=== PATIENT | male | born 1975 | race Caucasian/White ===

== ENCOUNTER 2016-09-12 13:34 | Inpatient (IN) | payer MEDICAID, OTHER ==
[~2016-09-12] VITALS: Ht 193 cm; Wt 134.5 kg
[2016-09-12 14:28] LABS: Basophils # (auto) 0 uL; Basophils % (auto) 0.5 % (0.0-2.0); DEFINITIVE VIEW TRANSMISSION; Eosinophils # (auto) 0.2 uL; Mean Platelet Volume 8.2 fL (7.4-10.4); Monocytes # (auto) 0.6 uL
[2016-09-12 14:32] LABS: Eosinophils % (auto) 2.9 % (0.0-7.0); Hematocrit 42.2 % (41.0-53.0); Lymphocytes # (auto) 1.3 uL; Lymphocytes % (auto) 17.7 % (10.0-50.0); Mean Corpuscular Hemoglobin 24.6 pg (28.0-32.0); Mean Corpuscular Hgb Conc. 30.7 g/dL (32.0-36.0); Monocytes % (auto) 7.8 % (0.0-12.0); Neutrophils # (auto) 5.3 uL; Neutrophils % (auto) 71.1 % (37.0-80.0); Platelet Count (auto) 332 10^3/uL (140-450); Red Cell Distribution Width 21.6 % (11.6-16.0); White Blood Cell 7.5 10^3/uL (4.4-10.8)
[2016-09-12 14:51] LABS: Albumin 2.5 g/dL (3.4-5.0); BUN/Creatinine Ratio 15.9; Calcium 8.1 mg/dL (8.5-10.1); Potassium 3.6 mmol/L (3.5-5.1); Total Protein 7.1 g/dL (6.4-8.2)
[2016-09-12 14:56] LABS: B-Type Natriuretic Peptide 1336.74 pg/mL (0-100); Temperature: 22.3 C (20.0-25.0)
[2016-09-12] MEDS ORDERED: VANCOMYCIN 1GM/250ML D5W 250 ML IV ONE (17:00)
[2016-09-12] MEDS ORDERED: FUROSEMIDE 20 MG/2 ML VIAL IV ONE (17:00)
[2016-09-12] MEDS ORDERED: PIPERACILLIN-TAZOB 3.375GM 100 ML IV ONE (17:00)
[2016-09-12] MEDS ORDERED: VANCOMYCIN PER PHARMACY 0 MG IV SCH (20:00)
[2016-09-12] MEDS ORDERED: DEXTROSE (50%) 50ML SYRG IV PRN (20:15)
[2016-09-12] MEDS ORDERED: FUROSEMIDE 40 MG/4 ML VIAL IV ONE (21:45)
[2016-09-12] MEDS: ACCU-CHEK COMFORT CURVE STRIP VI SCH (22:00)
[2016-09-12] MEDS: InsuLIN REG 1unit/0.01ml Soln (100units/ml) SC SCH (22:00)
[2016-09-12 22:30] VITALS: BP 105/77
[2016-09-12] MEDS: ENOXAPARIN SOD 40 MG/0.4 ML SYRINGE SC SCH (22:42)
[2016-09-12] MEDS: VANCOMYCIN 1,250 MG in D5W 5% 250 ML IV SCH (23:57)
[2016-09-13 04:43] VITALS: BP 99/46
[2016-09-13 06:49] LABS: Basophils # (auto) 0 uL; Basophils % (auto) 0.4 % (0.0-2.0); DEFINITIVE VIEW TRANSMISSION; Eosinophils # (auto) 0.1 uL; Hematocrit 37.2 % (41.0-53.0); Hemoglobin 11.5 g/dL (13.5-17.5); Lymphocytes # (auto) 1.3 uL; Lymphocytes % (auto) 17.2 % (10.0-50.0); Mean Corpuscular Hemoglobin 24.6 pg (28.0-32.0); Mean Corpuscular Hgb Conc. 30.9 g/dL (32.0-36.0); Mean Corpuscular Volume 79.4 fL (80.0-100.0); Mean Platelet Volume 8.5 fL (7.4-10.4); Monocytes # (auto) 0.7 uL; Monocytes % (auto) 9.2 % (0.0-12.0); Neutrophils # (auto) 5.3 uL; Neutrophils % (auto) 71.2 % (37.0-80.0); Platelet Count (auto) 297 10^3/uL (140-450); Red Cell Distribution Width 21.3 % (11.6-16.0); White Blood Cell 7.4 10^3/uL (4.4-10.8)
[2016-09-13] MEDS: ACCU-CHEK COMFORT CURVE STRIP VI SCH ×4 (06:54→22:07)
[2016-09-13] MEDS: InsuLIN REG 1unit/0.01ml Soln (100units/ml) SC SCH ×4 (06:54→22:00)
[2016-09-13 07:18] LABS: BUN/Creatinine Ratio 15.8; Calcium 7.3 mg/dL (8.5-10.1)
[2016-09-13 07:31] LABS: Potassium 2.9 mmol/L (3.5-5.1)
[2016-09-13 08:00] VITALS: BP 108/78
[2016-09-13] MEDS: VANCOMYCIN 1,250 MG in D5W 5% 250 ML IV SCH ×3 (08:00→23:46)
[2016-09-13 09:00] VITALS: BP 108/75
[2016-09-13] MEDS ORDERED: POTASSIUM CHL 20 Meq TABLET PO ONE (11:30)
[2016-09-13 13:00] VITALS: BP 99/70
[2016-09-13] MEDS: FUROSEMIDE 20 MG TAB PO SCH (13:17)
[2016-09-13] MEDS: PANTOPRAZOLE 40 MG TAB PO SCH (13:17)
[2016-09-13 17:02] VITALS: BP 121/71
[2016-09-13] MEDS: ENOXAPARIN SOD 40 MG/0.4 ML SYRINGE SC SCH (17:32)
[2016-09-13 21:51] VITALS: BP 121/86
[2016-09-14 05:41] VITALS: BP 107/70
[2016-09-14 05:52] LABS: Basophils # (auto) 0 uL; Basophils % (auto) 0.5 % (0.0-2.0); DEFINITIVE VIEW TRANSMISSION; Eosinophils # (auto) 0.2 uL; Eosinophils % (auto) 2.5 % (0.0-7.0); Hematocrit 38.3 % (41.0-53.0); Hemoglobin 11.9 g/dL (13.5-17.5); Lymphocytes # (auto) 1.7 uL; Lymphocytes % (auto) 19.4 % (10.0-50.0); Mean Corpuscular Hemoglobin 24.9 pg (28.0-32.0); Mean Corpuscular Volume 80.5 fL (80.0-100.0); Mean Platelet Volume 8.5 fL (7.4-10.4); Monocytes # (auto) 0.8 uL; Monocytes % (auto) 8.9 % (0.0-12.0); Neutrophils # (auto) 6.1 uL; Neutrophils % (auto) 68.7 % (37.0-80.0); Platelet Count (auto) 284 10^3/uL (140-450); White Blood Cell 8.9 10^3/uL (4.4-10.8)
[2016-09-14 05:57] LABS: Red Cell Distribution Width 21.5 % (11.6-16.0)
[2016-09-14] MEDS: ACCU-CHEK COMFORT CURVE STRIP VI SCH ×4 (06:02→22:15)
[2016-09-14] MEDS: InsuLIN REG 1unit/0.01ml Soln (100units/ml) SC SCH ×4 (06:02→22:00)
[2016-09-14 06:19] LABS: BUN/Creatinine Ratio 15.9; Calcium 7.5 mg/dL (8.5-10.1); Potassium 3.3 mmol/L (3.5-5.1)
[2016-09-14 08:00] VITALS: BP 115/75
[2016-09-14] MEDS: VANCOMYCIN 1,250 MG in D5W 5% 250 ML IV SCH ×3 (08:22→23:46)
[2016-09-14] MEDS: FUROSEMIDE 20 MG TAB PO SCH (10:17)
[2016-09-14] MEDS: PANTOPRAZOLE 40 MG TAB PO SCH (10:17)
[2016-09-14 11:27] LABS: Anisocytosis Slight; Hypochromia Slight; Ovalocytes FEW; Platelet Estimate Adequate
[2016-09-14 12:00] VITALS: BP 113/86
[2016-09-14 17:00] VITALS: BP 105/75
[2016-09-14] MEDS: ENOXAPARIN SOD 40 MG/0.4 ML SYRINGE SC SCH (18:15)
[2016-09-14 22:00] VITALS: BP_SYST 122; BP_SYST 132; BP_DIAS 70; BP_DIAS 75
[2016-09-15] MEDS: InsuLIN REG 1unit/0.01ml Soln (100units/ml) SC SCH ×4 (06:05→22:00)
[2016-09-15] MEDS: ACCU-CHEK COMFORT CURVE STRIP VI SCH ×4 (06:05→22:49)
[2016-09-15] MEDS: VANCOMYCIN 1,250 MG in D5W 5% 250 ML IV SCH (08:09)
[2016-09-15 09:02] VITALS: BP 116/71
[2016-09-15] MEDS ORDERED: OLANZapine 5 MG TAB PO PRN (09:45)
[2016-09-15] MEDS ORDERED: guaiFENesin-DEXTROMETHORPHAN 5ML SYR GT PRN (09:45)
[2016-09-15] MEDS: FUROSEMIDE 20 MG TAB PO SCH (10:00)
[2016-09-15] MEDS: PANTOPRAZOLE 40 MG TAB PO SCH (10:00)
[2016-09-15] MEDS: CIPROFLOXACIN HYDROCHLORIDE 250 MG TAB PO SCH ×2 (10:43→22:49)
[2016-09-15 12:34] VITALS: BP 116/82
[2016-09-15 16:04] VITALS: BP 115/79
[2016-09-15] MEDS: ENOXAPARIN SOD 40 MG/0.4 ML SYRINGE SC SCH (18:17)
[2016-09-15 22:00] VITALS: BP 118/89
[2016-09-16 05:00] VITALS: BP 118/79
[2016-09-16] MEDS: ACCU-CHEK COMFORT CURVE STRIP VI SCH ×4 (06:36→21:49)
[2016-09-16] MEDS: InsuLIN REG 1unit/0.01ml Soln (100units/ml) SC SCH ×4 (06:36→21:49)
[2016-09-16 06:42] LABS: Albumin 2.4 g/dL (3.4-5.0); BUN/Creatinine Ratio 16.7; Bilirubin, Total 1.9 mg/dL (0.2-1.0); Calcium 7.8 mg/dL (8.5-10.1); Total Protein 7.3 g/dL (6.4-8.2)
[2016-09-16 08:00] VITALS: BP 115/78
[2016-09-16 08:12] VITALS: BP 115/78
[2016-09-16] MEDS: PANTOPRAZOLE 40 MG TAB PO SCH (10:03)
[2016-09-16] MEDS: FUROSEMIDE 20 MG TAB PO SCH (10:03)
[2016-09-16] MEDS: CIPROFLOXACIN HYDROCHLORIDE 250 MG TAB PO SCH (10:04)
[2016-09-16] MEDS ORDERED: LISINOPRIL 5 MG TAB PO ONE (10:15)
[2016-09-16] MEDS ORDERED: FUROSEMIDE 40 MG/4 ML VIAL IV ONE (10:15)
[2016-09-16] MEDS ORDERED: POTASSIUM CHL 20 Meq TABLET PO ONE (10:15)
[2016-09-16] MEDS ORDERED: ceFAZolin 1GM/50ML D5W 50 ML IV ONE (10:15)
[2016-09-16 13:04] VITALS: BP 128/76
[2016-09-16] MEDS ORDERED: DIGOXIN 0.25 MG TAB PO ONE (14:00)
[2016-09-16] MEDS ORDERED: METOLAZONE 5 MG TAB PO ONE (14:00)
[2016-09-16] MEDS: ceFAZolin 1GM/50ML D5W 50 ML IV SCH ×2 (14:18→21:48)
[2016-09-16 17:00] VITALS: BP 116/78
[2016-09-16] MEDS: ENOXAPARIN SOD 40 MG/0.4 ML SYRINGE SC SCH (18:01)
[2016-09-16] MEDS: CARVEDILOL 3.125 MG TAB PO SCH (21:48)
[2016-09-16 22:00] VITALS: BP 115/68
[2016-09-17 05:00] VITALS: BP 105/74
[2016-09-17] MEDS: ceFAZolin 1GM/50ML D5W 50 ML IV SCH ×3 (06:00→21:41)
[2016-09-17] MEDS: InsuLIN REG 1unit/0.01ml Soln (100units/ml) SC SCH ×4 (06:52→21:42)
[2016-09-17] MEDS: ACCU-CHEK COMFORT CURVE STRIP VI SCH ×4 (06:52→21:42)
[2016-09-17 07:02] LABS: Potassium 3.1 mmol/L (3.5-5.1)
[2016-09-17 07:07] LABS: Calcium 7.7 mg/dL (8.5-10.1)
[2016-09-17 08:46] VITALS: BP 114/66
[2016-09-17] MEDS: FUROSEMIDE 40 MG/4 ML VIAL IV SCH (10:10)
[2016-09-17] MEDS: LISINOPRIL 5 MG TAB PO SCH (10:11)
[2016-09-17] MEDS: PANTOPRAZOLE 40 MG TAB PO SCH (10:11)
[2016-09-17] MEDS: POTASSIUM CHL 20 Meq TABLET PO SCH (10:11)
[2016-09-17] MEDS: CARVEDILOL 3.125 MG TAB PO SCH ×2 (10:12→21:42)
[2016-09-17] MEDS: DIGOXIN 0.25 MG TAB PO SCH (10:12)
[2016-09-17] MEDS: METOLAZONE 5 MG TAB PO SCH (10:13)
[2016-09-17] MEDS ORDERED: POTASSIUM CHL 20 Meq TABLET PO ONE (10:30)
[2016-09-17 13:16] VITALS: BP 111/73
[2016-09-17 17:21] VITALS: BP 100/66
[2016-09-17 22:00] VITALS: BP 135/79
[2016-09-18 05:00] VITALS: BP 116/72
[2016-09-18 05:05] LABS: BUN/Creatinine Ratio 14.4; Calcium 7.3 mg/dL (8.5-10.1); Potassium 3.2 mmol/L (3.5-5.1)
[2016-09-18] MEDS: ceFAZolin 1GM/50ML D5W 50 ML IV SCH ×3 (05:26→21:57)
[2016-09-18] MEDS: InsuLIN REG 1unit/0.01ml Soln (100units/ml) SC SCH ×4 (05:26→22:00)
[2016-09-18] MEDS: ACCU-CHEK COMFORT CURVE STRIP VI SCH ×4 (05:26→21:58)
[2016-09-18 08:52] VITALS: BP 108/73
[2016-09-18] MEDS: PANTOPRAZOLE 40 MG TAB PO SCH (09:57)
[2016-09-18] MEDS: CARVEDILOL 3.125 MG TAB PO SCH ×2 (09:57→21:58)
[2016-09-18] MEDS: POTASSIUM CHL 20 Meq TABLET PO SCH ×2 (09:57→21:57)
[2016-09-18] MEDS: DIGOXIN 0.25 MG TAB PO SCH (09:58)
[2016-09-18] MEDS: LISINOPRIL 5 MG TAB PO SCH (09:58)
[2016-09-18] MEDS: METOLAZONE 5 MG TAB PO SCH (10:00)
[2016-09-18] MEDS: FUROSEMIDE 40 MG/4 ML VIAL IV SCH (10:00)
[2016-09-18] MEDS ORDERED: POTASSIUM CHL 20 Meq TABLET PO ONE (10:36)
[2016-09-18] MEDS ORDERED: FUROSEMIDE 40 MG/4 ML VIAL IV ONE (10:37)
[2016-09-18 12:19] VITALS: BP 112/71
[2016-09-18 20:00] VITALS: BP 118/71
[2016-09-18 22:00] VITALS: BP 118/71
[2016-09-18 23:00] VITALS: BP 129/76
[2016-09-19 05:00] VITALS: BP 101/64
[2016-09-19] MEDS: ceFAZolin 1GM/50ML D5W 50 ML IV SCH ×2 (06:21→14:00)
[2016-09-19] MEDS: ACCU-CHEK COMFORT CURVE STRIP VI SCH ×2 (06:31→11:38)
[2016-09-19] MEDS: InsuLIN REG 1unit/0.01ml Soln (100units/ml) SC SCH ×2 (06:32→11:30)
[2016-09-19 08:55] VITALS: BP 103/77
[2016-09-19] MEDS: POTASSIUM CHL 20 Meq TABLET PO SCH (09:56)
[2016-09-19] MEDS: PANTOPRAZOLE 40 MG TAB PO SCH (09:56)
[2016-09-19] MEDS: DIGOXIN 0.25 MG TAB PO SCH (09:57)
[2016-09-19] MEDS: METOLAZONE 5 MG TAB PO SCH (09:57)
[2016-09-19] MEDS: CARVEDILOL 3.125 MG TAB PO SCH (09:58)
[2016-09-19] MEDS: LISINOPRIL 5 MG TAB PO SCH (09:58)
[2016-09-19] MEDS: FUROSEMIDE 40 MG/4 ML VIAL IV SCH (09:58)
[2016-09-19] MEDS ORDERED: PRO-STAT 64 30ML PO SCH (10:00)
[2016-09-19] MEDS ORDERED: ASCORBIC ACID 500 MG TAB PO SCH (10:00)
[2016-09-19] MEDS ORDERED: MULTIPLE VITAMIN TAB PO SCH (10:00)
[2016-09-19 11:11] VITALS: BP 103/77
[2016-09-19 13:00] VITALS: BP 113/72
== END 2016-09-19 14:10 | disposition home health service (06) | DRG 194 ==
LOC: EDBD 13:34 → ER 13:34 → OVERFLOW 13:35 → SUATTDRO 19:43 → CENTRAL 21:53 → TELE-CENTR 09-16 21:14
PROVIDERS: ADMIT Nurse Practitioner Acute Care; ATTEND Internal Medicine
DX: I50.23 Acute on chronic systolic (congestive) heart failure (principal); R18.8 Other ascites; E44.0 Moderate protein-calorie malnutrition; L03.115 Cellulitis of right lower limb; I42.0 Dilated cardiomyopathy; L97.919 Non-pressure chronic ulcer of unspecified part of right lower leg with unspecified severity; L03.116 Cellulitis of left lower limb; L97.929 Non-pressure chronic ulcer of unspecified part of left lower leg with unspecified severity; I11.0 Hypertensive heart disease with heart failure; I15.9 Secondary hypertension, unspecified; E66.01 Morbid (severe) obesity due to excess calories; F32.9 Major depressive disorder, single episode, unspecified; E11.9 Type 2 diabetes mellitus without complications; N50.0 Atrophy of testis; I34.0 Nonrheumatic mitral (valve) insufficiency; B95.61 Methicillin susceptible Staphylococcus aureus infection as the cause of diseases classified elsewhere; F79 Unspecified intellectual disabilities; N50.89 Other specified disorders of the male genital organs; F20.9 Schizophrenia, unspecified; Z91.19 Patient's noncompliance with other medical treatment and regimen; Z82.49 Family history of ischemic heart disease and other diseases of the circulatory system; Z83.3 Family history of diabetes mellitus; Z68.36 Body mass index [BMI] 36.0-36.9, adult; Z91.14 Patient's other noncompliance with medication regimen
CPT/HCPCS: 36415; 71020; 76870; 80048; 80053; 80061; 80202; 82962; 83036; 83880; 85025; 87040; 87077; 87186; 87205; 93005; 93306; 93970; 96365; 96366; 96367; 96375; 99291; J0690; J2543; J7060

== ENCOUNTER 2017-04-05 15:23 | Inpatient (IN) | payer MEDICAID ==
[~2017-04-05] VITALS: Ht 167.6 cm; Wt 87.3 kg
[2017-04-05 16:24] LABS: Hemoglobin 14.6 g/dL (13.5-17.5); Mean Platelet Volume 7.7 fL (6.9-10.8); White Blood Cell 7.9 10^3/uL (4.4-10.8)
[2017-04-05 16:26] LABS: Hematocrit 46.1 % (41.0-53.0); Mean Corpuscular Hemoglobin 26.7 pg (28.0-32.0); Mean Corpuscular Hgb Conc. 31.6 g/dL (32.0-36.0); Mean Corpuscular Volume 84.4 fL (80.0-100.0); Platelet Count (auto) 432 10^3/uL (140-450)
[2017-04-05 17:00] LABS: Metamyelocytes % 0; Myelocytes % 0; Promyelocytes % 0; Reactive Lymphocytes 0; Red Cell Distribution Width 20.6 % (11.8-14.3); Temperature: 22.2 C (20.0-25.0)
[2017-04-05 17:01] LABS: Anisocytosis Slight; Platelet Estimate Adequate
[2017-04-05 17:04] LABS: Urine Bilirubin 1+ (Negative); Urine Blood Negative /uL (Negative); Urine Color Brown (Yellow); Urine Glucose Normal (Normal); Urine Hyaline Cast MOD /lpf (0 - 2); Urine Ketone Negative (Negative); Urine Mucus MODERATE (None Seen); Urine Nitrite Negative (Negative); Urine RBC 1 /hpf (0 - 3); Urine Squamous Epithelial Cell FEW /hpf (<5)
[2017-04-05] MEDS ORDERED: FUROSEMIDE 20 MG/2 ML VIAL IV ONE (17:15)
[2017-04-05] MEDS ORDERED: LORazepam 2MG/ML-1ML VIAL ONE (17:46)
[2017-04-05 17:56] LABS: Lactic Acid w/Reflex 2.6 mmol/L (0.4-2.0)
[2017-04-05 17:57] LABS: REFLEX LACTIC ACID YES OR NO YES
[2017-04-05] MEDS ORDERED: LORazepam 2MG/ML-1ML VIAL IV ONE (18:00)
[2017-04-05 18:32] LABS: Anion Gap 12 (5-15); Carbon Dioxide 23 mmol/L (21-32); Chloride 101 mmol/L (98-107); Glucose 75 mg/dL (74-106); Potassium 4.6 mmol/L (3.5-5.1); Sodium 136 mmol/L (136-145)
[2017-04-05 18:33] LABS: Albumin 2.4 g/dL (3.4-5.0); Alkaline Phosphatase 104 U/L (45-117); Aspartate Aminotransferase 36 U/L (15-37); BUN/Creatinine Ratio 22.1; Bilirubin, Total 2.3 mg/dL (0.2-1.0); Blood Urea Nitrogen 15 mg/dL (7-18); Calcium 8.3 mg/dL (8.5-10.1); GFR African American 165 mL/min; GFR Non-African American 137 mL/min; Total Protein 7.1 g/dL (6.4-8.2)
[2017-04-05] MEDS ORDERED: LIDOCAINE 1% HCL (LOCAL ANESTH.) INJ 20ML MDV ONE (19:34)
[2017-04-05 20:01] LABS: INR 1.28 (0.9-1.15); Partial Thromboplastin Time 31.4 sec (22.64-33.71)
[2017-04-05] MEDS ORDERED: LORazepam 2MG/ML-1ML VIAL IV PRN (21:15)
[2017-04-05] MEDS ORDERED: cefTRIAXone 1GM/50ML D5W 50 ML IV ONE (21:15)
[2017-04-05] MEDS ORDERED: DEXTROSE (50%) 50ML SYRG IV PRN (21:30)
[2017-04-05] MEDS ORDERED: ONDANSETRON HCL 4 MG/2 ML VIAL IV PRN (21:30)
[2017-04-05] MEDS ORDERED: HETASTARCH IV ONE (21:45)
[2017-04-05] MEDS: InsuLIN REG 1unit/0.01ml Soln (100units/ml) SC SCH (22:00)
[2017-04-05 22:01] LABS: Body Fluid Polymorphonuclear 95 %
[2017-04-05] MEDS: ACCU-CHEK COMFORT CURVE STRIP VI SCH (22:04)
[2017-04-05] MEDS: CARVEDILOL 3.125 MG TAB PO SCH (22:09)
[2017-04-05] MEDS: CLINDAMYCIN 600MG IV 50 ML IV SCH (22:38)
[2017-04-05] MEDS ORDERED: PHYTONADIONE (VIT K)10 MG/ML 1ML VIAL SUBCUT ONE (23:30)
[2017-04-05] MEDS ORDERED: NEOMYCIN SULFATE 500 MG TAB PO ONE (23:30)
[2017-04-06] MEDS ORDERED: ALBUMIN 25% 100 ML IV ONE (01:00)
[2017-04-06 05:00] VITALS: BP 90/70
[2017-04-06] MEDS: CLINDAMYCIN 600MG IV 50 ML IV SCH ×3 (06:13→21:35)
[2017-04-06] MEDS: SPIRONOLACTONE 25 MG TAB PO SCH ×2 (06:14→17:20)
[2017-04-06 06:21] LABS: Basophils # (auto) 0 uL; Basophils % (auto) 0.1 % (0.0-2.0); Eosinophils # (auto) 0 uL; Eosinophils % (auto) 0.2 % (0.0-7.0); Hemoglobin 12.2 g/dL (13.5-17.5); Lymphocytes # (auto) 0.5 uL; Lymphocytes % (auto) 6.1 % (10.0-50.0); Mean Corpuscular Hemoglobin 27.1 pg (28.0-32.0); Mean Corpuscular Hgb Conc. 31.3 g/dL (32.0-36.0); Mean Corpuscular Volume 86.5 fL (80.0-100.0); Mean Platelet Volume 7.4 fL (6.9-10.8); Monocytes # (auto) 0.5 uL; Monocytes % (auto) 6.8 % (0.0-12.0); Neutrophils # (auto) 6.9 uL; Neutrophils % (auto) 86.8 % (37.0-80.0); Platelet Count (auto) 314 10^3/uL (140-450); White Blood Cell 7.9 10^3/uL (4.4-10.8)
[2017-04-06 06:39] LABS: Albumin 2.2 g/dL (3.4-5.0); BUN/Creatinine Ratio 29.8; Bilirubin, Total 2.2 mg/dL (0.2-1.0); Calcium 8.2 mg/dL (8.5-10.1); Potassium 4.1 mmol/L (3.5-5.1); Total Protein 5.9 g/dL (6.4-8.2)
[2017-04-06] MEDS: InsuLIN REG 1unit/0.01ml Soln (100units/ml) SC SCH ×4 (07:00→21:42)
[2017-04-06 07:01] LABS: Anisocytosis Slight; Platelet Estimate Adequate
[2017-04-06 07:02] LABS: Polychromasia Slight
[2017-04-06] MEDS: ACCU-CHEK COMFORT CURVE STRIP VI SCH ×4 (07:37→21:43)
[2017-04-06 08:10] VITALS: BP 118/77
[2017-04-06] MEDS ORDERED: FUROSEMIDE 40 MG/4 ML VIAL IV SCH (10:00)
[2017-04-06 11:25] LABS: Cholesterol 54 mg/dL (< 200); HDL Cholesterol 26 mg/dL (40-59); LDL Cholesterol 29 mg/dL (< 100); Triglycerides 55 mg/dL (< 150)
[2017-04-06] MEDS: ASPirin-EC 81 mg tab PO SCH (14:33)
[2017-04-06] MEDS: CARVEDILOL 3.125 MG TAB PO SCH ×2 (14:33→21:44)
[2017-04-06] MEDS: LISINOPRIL 10 MG TAB PO SCH (14:34)
[2017-04-06] MEDS: LACTULOSE 20Gm/30ML SOLN PO SCH (14:35)
[2017-04-06 16:56] VITALS: BP 96/47
[2017-04-06] MEDS: FUROSEMIDE 40 MG/4 ML VIAL IV SCH (17:20)
[2017-04-06] MEDS: PRO-STAT 64 30ML PO SCH (18:33)
[2017-04-06] MEDS: MULTIPLE VITAMIN TAB PO SCH (18:33)
[2017-04-06] MEDS: cefTRIAXone 1GM/50ML D5W 50 ML IV SCH (20:55)
[2017-04-06 22:00] VITALS: BP 90/57
[2017-04-07 05:00] VITALS: BP 91/55
[2017-04-07] MEDS: SPIRONOLACTONE 25 MG TAB PO SCH ×2 (05:37→18:00)
[2017-04-07] MEDS: CLINDAMYCIN 600MG IV 50 ML IV SCH (05:37)
[2017-04-07] MEDS: FUROSEMIDE 40 MG/4 ML VIAL IV SCH ×2 (05:37→18:00)
[2017-04-07 06:15] LABS: Basophils # (auto) 0 uL; Eosinophils # (auto) 0 uL; Lymphocytes # (auto) 0.3 uL; Lymphocytes % (auto) 3.9 % (10.0-50.0); Mean Platelet Volume 7.4 fL (6.9-10.8); Monocytes # (auto) 0.7 uL
[2017-04-07 06:19] LABS: Basophils % (auto) 0.1 % (0.0-2.0); Eosinophils % (auto) 0.1 % (0.0-7.0); Hematocrit 35.9 % (41.0-53.0); Hemoglobin 11.6 g/dL (13.5-17.5); Mean Corpuscular Hemoglobin 27.1 pg (28.0-32.0); Mean Corpuscular Hgb Conc. 32.4 g/dL (32.0-36.0); Mean Corpuscular Volume 83.7 fL (80.0-100.0); Monocytes % (auto) 8.8 % (0.0-12.0); Neutrophils # (auto) 6.6 uL; Neutrophils % (auto) 87.1 % (37.0-80.0); Nucleated Red Blood Cells % 0.1 %; Platelet Count (auto) 284 10^3/uL (140-450); White Blood Cell 7.6 10^3/uL (4.4-10.8)
[2017-04-07 06:21] LABS: Red Cell Distribution Width 20.1 % (11.8-14.3)
[2017-04-07 06:45] LABS: Albumin 1.8 g/dL (3.4-5.0); BUN/Creatinine Ratio 41.5; Bilirubin, Total 1.2 mg/dL (0.2-1.0); Calcium 7.8 mg/dL (8.5-10.1); Magnesium 1.9 mg/dL (1.6-2.6); Phosphorus 3.6 mg/dL (2.5-4.90); Potassium 3.7 mmol/L (3.5-5.1); Total Protein 5.6 g/dL (6.4-8.2)
[2017-04-07 06:54] LABS: Platelet Estimate Adequate
[2017-04-07] MEDS: InsuLIN REG 1unit/0.01ml Soln (100units/ml) SC SCH ×4 (06:54→21:09)
[2017-04-07 06:55] LABS: Anisocytosis Slight; Ovalocytes FEW
[2017-04-07] MEDS: ACCU-CHEK COMFORT CURVE STRIP VI SCH ×4 (06:56→21:08)
[2017-04-07] MEDS: PRO-STAT 64 30ML PO SCH ×2 (08:00→18:08)
[2017-04-07 09:23] VITALS: BP 95/53
[2017-04-07] MEDS: CARVEDILOL 3.125 MG TAB PO SCH ×2 (10:00→22:00)
[2017-04-07] MEDS: LISINOPRIL 10 MG TAB PO SCH (10:00)
[2017-04-07] MEDS: ASPirin-EC 81 mg tab PO SCH (11:25)
[2017-04-07] MEDS: MULTIPLE VITAMIN TAB PO SCH (11:25)
[2017-04-07] MEDS: LACTULOSE 20Gm/30ML SOLN PO SCH (11:25)
[2017-04-07 13:00] VITALS: BP 101/60
[2017-04-07 16:46] VITALS: BP 99/63
[2017-04-07] MEDS ORDERED: VANCOMYCIN 1GM/250ML 250 ML IV ONE (17:00)
[2017-04-07] MEDS ORDERED: VANCOMYCIN PER PHARMACY 0 MG IV SCH (17:00)
[2017-04-07] MEDS ORDERED: ACETAMINOPHEN 325 MG TAB PO PRN (17:00)
[2017-04-07] MEDS ORDERED: cefTRIAXone 1GM/50ML D5W 50 ML IV ONE (17:45)
[2017-04-07] MEDS: VANCOMYCIN 1,250 MG in D5W 5% 250 ML IV SCH (19:27)
[2017-04-07] MEDS: cefTRIAXone 1GM/50ML D5W 50 ML IV SCH (21:08)
[2017-04-07 22:00] VITALS: BP 98/62
[2017-04-08 05:00] VITALS: BP 101/55
[2017-04-08] MEDS: FUROSEMIDE 40 MG/4 ML VIAL IV SCH ×2 (05:26→18:00)
[2017-04-08] MEDS: SPIRONOLACTONE 25 MG TAB PO SCH ×2 (05:26→18:00)
[2017-04-08] MEDS: ACCU-CHEK COMFORT CURVE STRIP VI SCH ×4 (06:19→21:41)
[2017-04-08] MEDS: InsuLIN REG 1unit/0.01ml Soln (100units/ml) SC SCH ×4 (06:20→21:41)
[2017-04-08] MEDS: VANCOMYCIN 1,250 MG in D5W 5% 250 ML IV SCH (07:00)
[2017-04-08 07:36] LABS: Basophils # (auto) 0 uL; Basophils % (auto) 0.1 % (0.0-2.0); Eosinophils # (auto) 0 uL; Eosinophils % (auto) 0.2 % (0.0-7.0); Hemoglobin 12.1 g/dL (13.5-17.5); Lymphocytes # (auto) 0.4 uL; Monocytes # (auto) 0.7 uL; Monocytes % (auto) 7.9 % (0.0-12.0)
[2017-04-08 07:41] LABS: Hematocrit 38.3 % (41.0-53.0); Lymphocytes % (auto) 4.3 % (10.0-50.0); Mean Corpuscular Hemoglobin 26.9 pg (28.0-32.0); Mean Corpuscular Hgb Conc. 31.6 g/dL (32.0-36.0); Mean Corpuscular Volume 85.2 fL (80.0-100.0); Mean Platelet Volume 7.4 fL (6.9-10.8); Neutrophils # (auto) 8.2 uL; Neutrophils % (auto) 87.5 % (37.0-80.0); Nucleated Red Blood Cells % 0.1 %; Platelet Count (auto) 293 10^3/uL (140-450); White Blood Cell 9.4 10^3/uL (4.4-10.8)
[2017-04-08 07:45] LABS: Red Cell Distribution Width 20.6 % (11.8-14.3)
[2017-04-08 07:52] LABS: INR 1.12 (0.9-1.15); Partial Thromboplastin Time 36.9 sec (22.64-33.71); Prothrombin Time 12.2 sec (9.37-12.3)
[2017-04-08] MEDS: PRO-STAT 64 30ML PO SCH ×2 (08:00→18:22)
[2017-04-08 08:36] LABS: Albumin 1.7 g/dL (3.4-5.0); Bilirubin, Direct 0.5 mg/dL (0-0.2); Calcium 8.2 mg/dL (8.5-10.1); Potassium 3.2 mmol/L (3.5-5.1); Total Protein 5.7 g/dL (6.4-8.2)
[2017-04-08 09:00] VITALS: BP 102/57
[2017-04-08] MEDS: LACTULOSE 20Gm/30ML SOLN PO SCH (10:00)
[2017-04-08] MEDS: LISINOPRIL 10 MG TAB PO SCH (10:00)
[2017-04-08] MEDS: CARVEDILOL 3.125 MG TAB PO SCH ×2 (10:00→21:41)
[2017-04-08] MEDS: ASPirin-EC 81 mg tab PO SCH (10:06)
[2017-04-08] MEDS: MULTIPLE VITAMIN TAB PO SCH (10:06)
[2017-04-08] MEDS: ENOXAPARIN SOD 40 MG/0.4 ML SYRINGE SC SCH (10:07)
[2017-04-08] MEDS ORDERED: ALBUMIN 25% 50 ML IV ONE (11:30)
[2017-04-08 11:32] LABS: Platelet Estimate Adequate
[2017-04-08 11:36] LABS: Anisocytosis Slight; Ovalocytes FEW
[2017-04-08] MEDS: ALBUMIN 25% 100 ML IV SCH ×2 (12:09→13:00)
[2017-04-08 13:00] VITALS: BP 92/48
[2017-04-08] MEDS ORDERED: POTASSIUM CHL 10% (20 MEQ/15ML) 15ml ORAL SOLN PO ONE (17:30)
[2017-04-08] MEDS ORDERED: FUROSEMIDE 20 MG/2 ML VIAL IV ONE (18:15)
[2017-04-08] MEDS: LEVOFLOXACIN 500MG 100 ML IV SCH (18:37)
[2017-04-08 22:00] VITALS: BP 105/62
[2017-04-09 05:00] VITALS: BP 93/51
[2017-04-09] MEDS: FUROSEMIDE 40 MG/4 ML VIAL IV SCH ×2 (06:00→18:00)
[2017-04-09] MEDS: SPIRONOLACTONE 25 MG TAB PO SCH ×2 (06:00→18:00)
[2017-04-09] MEDS: ACCU-CHEK COMFORT CURVE STRIP VI SCH ×2 (06:34→11:46)
[2017-04-09] MEDS: InsuLIN REG 1unit/0.01ml Soln (100units/ml) SC SCH ×2 (06:34→11:30)
[2017-04-09 06:37] LABS: Basophils # (auto) 0 uL; Basophils % (auto) 0.1 % (0.0-2.0); Eosinophils # (auto) 0 uL; Eosinophils % (auto) 0.7 % (0.0-7.0); Hematocrit 35.6 % (41.0-53.0); Hemoglobin 11.4 g/dL (13.5-17.5); Lymphocytes # (auto) 0.4 uL; Lymphocytes % (auto) 5.6 % (10.0-50.0); Mean Corpuscular Hemoglobin 26.4 pg (28.0-32.0); Mean Corpuscular Volume 82.6 fL (80.0-100.0); Monocytes # (auto) 0.8 uL; Neutrophils # (auto) 5.7 uL; Neutrophils % (auto) 82.6 % (37.0-80.0); Nucleated Red Blood Cells % 0.1 %; Platelet Count (auto) 250 10^3/uL (140-450); White Blood Cell 6.9 10^3/uL (4.4-10.8)
[2017-04-09 06:46] LABS: Red Cell Distribution Width 20.1 % (11.8-14.3)
[2017-04-09 06:51] LABS: Albumin 1.6 g/dL (3.4-5.0); BUN/Creatinine Ratio 26.7; Calcium 7.7 mg/dL (8.5-10.1); Magnesium 1.7 mg/dL (1.6-2.6)
[2017-04-09 06:54] LABS: Bilirubin, Total 0.9 mg/dL (0.2-1.0); Total Protein 4.8 g/dL (6.4-8.2)
[2017-04-09 07:00] LABS: Potassium 2.7 mmol/L (3.5-5.1)
[2017-04-09 07:17] LABS: Anisocytosis Slight; Hypochromia Slight; Ovalocytes FEW; Platelet Estimate Adequate; Stomatocytes Few
[2017-04-09] MEDS: PRO-STAT 64 30ML PO SCH ×2 (08:00→18:28)
[2017-04-09] MEDS ORDERED: POTASSIUM CHL 10% (20 MEQ/15ML) 15ml ORAL SOLN GT ONE ×2 (08:15→15:15)
[2017-04-09] MEDS: LEVOFLOXACIN 500MG 100 ML IV SCH (08:58)
[2017-04-09] MEDS: MULTIPLE VITAMIN TAB PO SCH (08:59)
[2017-04-09] MEDS: ASPirin-EC 81 mg tab PO SCH (08:59)
[2017-04-09 09:00] VITALS: BP 100/58
[2017-04-09] MEDS: ENOXAPARIN SOD 40 MG/0.4 ML SYRINGE SC SCH (10:00)
[2017-04-09] MEDS: LISINOPRIL 10 MG TAB PO SCH (10:00)
[2017-04-09] MEDS: LACTULOSE 20Gm/30ML SOLN PO SCH (10:00)
[2017-04-09] MEDS: CARVEDILOL 3.125 MG TAB PO SCH ×2 (10:00→22:00)
[2017-04-09] MEDS ORDERED: FUROSEMIDE 20 MG/2 ML VIAL IV ONE (10:15)
[2017-04-09] MEDS ORDERED: ACETAMINOPHEN 325 MG TAB PO PRN (10:30)
[2017-04-09] MEDS: POTASSIUM CHL 20MEQ/50ML 50 ML IV SCH ×4 (12:30→17:15)
[2017-04-09] MEDS ORDERED: POTASSIUM CHL 10% (20 MEQ/15ML) 15ml ORAL SOLN PO ONE (12:30)
[2017-04-09 13:00] VITALS: BP 96/51
[2017-04-09] MEDS: MAGNESIUM SULFATE 1GM/100ML 100 ML IV SCH ×2 (13:00→14:00)
[2017-04-09 14:06] LABS: Albumin, Body Fluid 1.5 g/dL (.)
[2017-04-09 14:14] LABS: Temperature: 23.7 C (20.0-25.0)
[2017-04-09 17:00] VITALS: BP 99/64
[2017-04-09] MEDS: Boost Glucose Control 8 Ounces PO SCH (18:28)
[2017-04-09] MEDS ORDERED: HALOPERIDOL LACTATE 5 MG/ML INJ VIAL IM PRN (21:45)
[2017-04-09 22:00] VITALS: BP 90/63
[2017-04-09] MEDS: ASCORBIC ACID 500 MG TAB PO SCH (22:09)
[2017-04-10 05:00] VITALS: BP 91/50
[2017-04-10] MEDS: FUROSEMIDE 40 MG/4 ML VIAL IV SCH ×2 (06:00→18:00)
[2017-04-10] MEDS: SPIRONOLACTONE 25 MG TAB PO SCH ×2 (06:20→18:02)
[2017-04-10 06:35] LABS: INR 1.16 (0.9-1.15); Partial Thromboplastin Time 36.7 sec (22.64-33.71); Prothrombin Time 12.7 sec (9.37-12.3)
[2017-04-10 06:36] LABS: Albumin 1.5 g/dL (3.4-5.0); BUN/Creatinine Ratio 26.5; Bilirubin, Direct 0.3 mg/dL (0-0.2); Bilirubin, Total 0.7 mg/dL (0.2-1.0); Calcium 7.1 mg/dL (8.5-10.1); Magnesium 1.8 mg/dL (1.6-2.6); Total Protein 4.9 g/dL (6.4-8.2)
[2017-04-10 06:40] LABS: Basophils # (auto) 0 uL; Basophils % (auto) 0.2 % (0.0-2.0); Eosinophils # (auto) 0.1 uL; Eosinophils % (auto) 2.2 % (0.0-7.0); Hematocrit 34.3 % (41.0-53.0); Hemoglobin 11.1 g/dL (13.5-17.5); Lymphocytes # (auto) 0.5 uL; Lymphocytes % (auto) 7.7 % (10.0-50.0); Mean Corpuscular Hgb Conc. 32.5 g/dL (32.0-36.0); Mean Corpuscular Volume 83.1 fL (80.0-100.0); Mean Platelet Volume 7.4 fL (6.9-10.8); Monocytes # (auto) 0.6 uL; Neutrophils # (auto) 4.8 uL; Neutrophils % (auto) 79.9 % (37.0-80.0); Platelet Count (auto) 228 10^3/uL (140-450); Potassium 2.7 mmol/L (3.5-5.1)
[2017-04-10 06:54] LABS: Red Cell Distribution Width 20.1 % (11.8-14.3)
[2017-04-10 07:45] LABS: Platelet Estimate Adequate
[2017-04-10 07:46] LABS: Anisocytosis Slight; Hypochromia Slight; Ovalocytes FEW
[2017-04-10 07:49] LABS: Tear Drop Cells FEW
[2017-04-10 08:28] VITALS: BP 107/58
[2017-04-10] MEDS ORDERED: FUROSEMIDE 20 MG TAB PO ONE (10:15)
[2017-04-10] MEDS: LACTULOSE 20Gm/30ML SOLN PO SCH (10:44)
[2017-04-10] MEDS: ENOXAPARIN SOD 40 MG/0.4 ML SYRINGE SC SCH (10:45)
[2017-04-10] MEDS: LISINOPRIL 10 MG TAB PO SCH (10:46)
[2017-04-10] MEDS: ASCORBIC ACID 500 MG TAB PO SCH ×2 (10:46→23:05)
[2017-04-10] MEDS: MULTIPLE VITAMIN TAB PO SCH (10:47)
[2017-04-10] MEDS: CARVEDILOL 3.125 MG TAB PO SCH ×2 (10:47→23:05)
[2017-04-10] MEDS: ASPirin-EC 81 mg tab PO SCH (10:48)
[2017-04-10] MEDS: POTASSIUM CHL 10% (20 MEQ/15ML) 15ml ORAL SOLN PO SCH ×3 (10:49→18:05)
[2017-04-10] MEDS: PRO-STAT 64 30ML PO SCH ×2 (11:48→18:04)
[2017-04-10] MEDS: Boost Glucose Control 8 Ounces PO SCH ×3 (11:48→18:04)
[2017-04-10] MEDS: AMIODARONE HCL 200 MG TAB PO SCH ×2 (12:25→23:05)
[2017-04-10 13:09] VITALS: BP 92/55
[2017-04-10] MEDS: ALBUMIN 25% 100 ML IV SCH ×2 (16:00→23:07)
[2017-04-10 17:00] VITALS: BP 80/43
[2017-04-10] MEDS: LEVOFLOXACIN 500MG 100 ML IV SCH (18:02)
[2017-04-10 18:04] LABS: Calcium 7.6 mg/dL (8.5-10.1); Potassium 3.8 mmol/L (3.5-5.1)
[2017-04-10 22:00] VITALS: BP 82/49
[2017-04-10] MEDS ORDERED: ALBUMIN 25% 200 ML IV ONE (22:50)
[2017-04-11 05:00] VITALS: BP 76/46
[2017-04-11] MEDS: FUROSEMIDE 40 MG/4 ML VIAL IV SCH ×2 (06:00→17:41)
[2017-04-11 06:37] LABS: Basophils # (auto) 0 uL; Eosinophils # (auto) 0.2 uL; Hemoglobin 11.4 g/dL (13.5-17.5); Mean Corpuscular Volume 84.1 fL (80.0-100.0); Monocytes # (auto) 0.5 uL
[2017-04-11 06:39] LABS: Basophils % (auto) 0.2 % (0.0-2.0); Hematocrit 35.9 % (41.0-53.0); Lymphocytes # (auto) 0.6 uL; Lymphocytes % (auto) 11.3 % (10.0-50.0); Mean Corpuscular Hemoglobin 26.6 pg (28.0-32.0); Mean Corpuscular Hgb Conc. 31.7 g/dL (32.0-36.0); Mean Platelet Volume 7.1 fL (6.9-10.8); Monocytes % (auto) 8.1 % (0.0-12.0); Neutrophils # (auto) 4.3 uL; Neutrophils % (auto) 76.4 % (37.0-80.0); Platelet Count (auto) 217 10^3/uL (140-450); White Blood Cell 5.7 10^3/uL (4.4-10.8)
[2017-04-11] MEDS: SPIRONOLACTONE 25 MG TAB PO SCH ×2 (06:43→17:40)
[2017-04-11 06:51] LABS: INR 1.17 (0.9-1.15); Partial Thromboplastin Time 36.4 sec (22.64-33.71); Prothrombin Time 12.8 sec (9.37-12.3)
[2017-04-11 06:54] LABS: BUN/Creatinine Ratio 24.2; Calcium 7.2 mg/dL (8.5-10.1)
[2017-04-11 06:56] LABS: Bilirubin, Direct 0.3 mg/dL (0-0.2); Bilirubin, Total 0.7 mg/dL (0.2-1.0); Magnesium 1.7 mg/dL (1.6-2.6); Total Protein 5.4 g/dL (6.4-8.2)
[2017-04-11 07:15] LABS: Potassium 2.8 mmol/L (3.5-5.1)
[2017-04-11 08:00] VITALS: BP 99/86
[2017-04-11] MEDS: PRO-STAT 64 30ML PO SCH ×2 (08:00→18:00)
[2017-04-11] MEDS: Boost Glucose Control 8 Ounces PO SCH ×3 (08:00→18:00)
[2017-04-11 09:00] VITALS: BP 99/86
[2017-04-11] MEDS: CARVEDILOL 3.125 MG TAB PO SCH ×2 (10:00→22:00)
[2017-04-11] MEDS: ENOXAPARIN SOD 40 MG/0.4 ML SYRINGE SC SCH (10:00)
[2017-04-11] MEDS: LISINOPRIL 10 MG TAB PO SCH (10:00)
[2017-04-11] MEDS: LACTULOSE 20Gm/30ML SOLN PO SCH (10:01)
[2017-04-11] MEDS: MULTIPLE VITAMIN TAB PO SCH (10:01)
[2017-04-11] MEDS: ASPirin-EC 81 mg tab PO SCH (10:01)
[2017-04-11] MEDS: ASCORBIC ACID 500 MG TAB PO SCH ×2 (10:01→23:20)
[2017-04-11] MEDS: AMIODARONE HCL 200 MG TAB PO SCH ×2 (10:01→23:20)
[2017-04-11] MEDS: LEVOFLOXACIN 500MG 100 ML IV SCH (10:02)
[2017-04-11] MEDS ORDERED: POTASSIUM CHL 10% (20 MEQ/15ML) 15ml ORAL SOLN PO ONE (11:00)
[2017-04-11 12:24] LABS: Anisocytosis Slight; Platelet Estimate Adequate
[2017-04-11 12:25] LABS: Hypochromia Slight
[2017-04-11 12:29] LABS: Ovalocytes FEW
[2017-04-11 12:30] LABS: Stomatocytes Few
[2017-04-11 13:00] VITALS: BP 99/77
[2017-04-11] MEDS ORDERED: CEFOTAXIME SODIUM 2 GM in D5W 5% 100 ML IV SCH (14:00)
[2017-04-11] MEDS: D5W 5% IV SCH ×2 (14:51→23:20)
[2017-04-11] MEDS: CEFOTAXIME SODIUM IV SCH ×2 (14:51→23:20)
[2017-04-11 17:42] VITALS: BP 95/64
[2017-04-11 22:00] VITALS: BP 91/57
[2017-04-11] MEDS: POTASSIUM CHL 10% (20 MEQ/15ML) 15ml ORAL SOLN PO SCH (22:00)
[2017-04-12 05:00] VITALS: BP 86/53
[2017-04-12] MEDS: FUROSEMIDE 40 MG/4 ML VIAL IV SCH ×2 (06:00→18:55)
[2017-04-12] MEDS: D5W 5% IV SCH ×3 (06:04→22:32)
[2017-04-12] MEDS: SPIRONOLACTONE 25 MG TAB PO SCH ×2 (06:04→18:56)
[2017-04-12] MEDS: CEFOTAXIME SODIUM IV SCH ×3 (06:04→22:32)
[2017-04-12] MEDS: Boost Glucose Control 8 Ounces PO SCH ×3 (08:00→18:00)
[2017-04-12] MEDS: PRO-STAT 64 30ML PO SCH ×2 (08:00→18:00)
[2017-04-12] MEDS: ASCORBIC ACID 500 MG TAB PO SCH ×2 (09:05→22:33)
[2017-04-12] MEDS: MULTIPLE VITAMIN TAB PO SCH (09:05)
[2017-04-12] MEDS: ASPirin-EC 81 mg tab PO SCH (09:05)
[2017-04-12] MEDS: ENOXAPARIN SOD 40 MG/0.4 ML SYRINGE SC SCH (09:06)
[2017-04-12] MEDS: POTASSIUM CHL 10% (20 MEQ/15ML) 15ml ORAL SOLN PO SCH ×2 (09:06→22:34)
[2017-04-12 09:10] VITALS: BP 97/60
[2017-04-12] MEDS: CARVEDILOL 3.125 MG TAB PO SCH ×2 (09:13→22:00)
[2017-04-12] MEDS: AMIODARONE HCL 200 MG TAB PO SCH ×2 (09:14→22:32)
[2017-04-12] MEDS: LACTULOSE 20Gm/30ML SOLN PO SCH (09:14)
[2017-04-12] MEDS: LISINOPRIL 10 MG TAB PO SCH (09:15)
[2017-04-12 13:27] VITALS: BP 85/58
[2017-04-12 17:05] VITALS: BP 92/67
[2017-04-12 22:00] VITALS: BP 99/64
[2017-04-13 05:00] VITALS: BP 85/60
[2017-04-13] MEDS: FUROSEMIDE 40 MG/4 ML VIAL IV SCH ×2 (06:00→17:38)
[2017-04-13] MEDS: SPIRONOLACTONE 25 MG TAB PO SCH ×2 (06:00→17:37)
[2017-04-13] MEDS: CEFOTAXIME SODIUM IV SCH ×3 (06:25→22:02)
[2017-04-13] MEDS: D5W 5% IV SCH ×3 (06:25→22:02)
[2017-04-13 06:50] LABS: Basophils # (auto) 0 uL; Basophils % (auto) 0.7 % (0.0-2.0); Eosinophils # (auto) 0.2 uL; Hemoglobin 11.7 g/dL (13.5-17.5); Mean Platelet Volume 7.8 fL (6.9-10.8); Monocytes # (auto) 0.5 uL; Neutrophils # (auto) 3.9 uL
[2017-04-13 06:59] LABS: Eosinophils % (auto) 3.2 % (0.0-7.0); Lymphocytes % (auto) 17.9 % (10.0-50.0); Mean Corpuscular Hemoglobin 26.9 pg (28.0-32.0); Mean Corpuscular Hgb Conc. 32.5 g/dL (32.0-36.0); Mean Corpuscular Volume 82.7 fL (80.0-100.0); Monocytes % (auto) 9.1 % (0.0-12.0); Neutrophils % (auto) 69.1 % (37.0-80.0); Nucleated Red Blood Cells % 0.1 %; Platelet Count (auto) 219 10^3/uL (140-450); Red Cell Distribution Width 19.9 % (11.8-14.3); White Blood Cell 5.7 10^3/uL (4.4-10.8)
[2017-04-13 07:05] LABS: INR 1.12 (0.9-1.15); Prothrombin Time 12.2 sec (9.37-12.3)
[2017-04-13 07:10] LABS: BUN/Creatinine Ratio 30.2; Bilirubin, Total 0.5 mg/dL (0.2-1.0); Calcium 7.4 mg/dL (8.5-10.1); Magnesium 1.8 mg/dL (1.6-2.6); Potassium 4.4 mmol/L (3.5-5.1); Total Protein 5.6 g/dL (6.4-8.2)
[2017-04-13 07:53] VITALS: BP 81/51
[2017-04-13] MEDS: Boost Glucose Control 8 Ounces PO SCH ×3 (08:00→18:00)
[2017-04-13] MEDS: PRO-STAT 64 30ML PO SCH ×2 (08:00→18:00)
[2017-04-13] MEDS: ENOXAPARIN SOD 40 MG/0.4 ML SYRINGE SC SCH (09:38)
[2017-04-13] MEDS: ASPirin-EC 81 mg tab PO SCH (09:38)
[2017-04-13] MEDS: ASCORBIC ACID 500 MG TAB PO SCH ×2 (09:39→22:02)
[2017-04-13] MEDS: AMIODARONE HCL 200 MG TAB PO SCH ×2 (09:39→22:00)
[2017-04-13] MEDS: POTASSIUM CHL 10% (20 MEQ/15ML) 15ml ORAL SOLN PO SCH ×2 (09:39→22:02)
[2017-04-13] MEDS: MULTIPLE VITAMIN TAB PO SCH (09:39)
[2017-04-13] MEDS: LISINOPRIL 10 MG TAB PO SCH (09:41)
[2017-04-13] MEDS: CARVEDILOL 3.125 MG TAB PO SCH ×2 (09:41→22:00)
[2017-04-13] MEDS: LACTULOSE 20Gm/30ML SOLN PO SCH (09:42)
[2017-04-13 12:21] VITALS: BP 96/56
[2017-04-13 16:00] VITALS: BP 86/58
[2017-04-13 22:00] VITALS: BP 81/48
[2017-04-14 05:00] VITALS: BP 90/62
[2017-04-14] MEDS: FUROSEMIDE 40 MG/4 ML VIAL IV SCH (05:16)
[2017-04-14 06:15] LABS: Basophils # (auto) 0 uL; Eosinophils # (auto) 0.2 uL; Lymphocytes % (auto) 18.5 % (10.0-50.0); Mean Platelet Volume 7.2 fL (6.9-10.8); Monocytes # (auto) 0.5 uL; Monocytes % (auto) 9.2 % (0.0-12.0); Red Cell Distribution Width 19.8 % (11.8-14.3)
[2017-04-14] MEDS: D5W 5% IV SCH ×3 (06:15→22:10)
[2017-04-14] MEDS: CEFOTAXIME SODIUM IV SCH ×3 (06:15→22:10)
[2017-04-14] MEDS: SPIRONOLACTONE 25 MG TAB PO SCH ×2 (06:16→22:08)
[2017-04-14 06:17] LABS: Basophils % (auto) 0.7 % (0.0-2.0); Eosinophils % (auto) 3.3 % (0.0-7.0); Hemoglobin 11.1 g/dL (13.5-17.5); Mean Corpuscular Hemoglobin 27.1 pg (28.0-32.0); Mean Corpuscular Hgb Conc. 32.7 g/dL (32.0-36.0); Mean Corpuscular Volume 82.7 fL (80.0-100.0); Neutrophils # (auto) 3.5 uL; Neutrophils % (auto) 68.3 % (37.0-80.0); Platelet Count (auto) 210 10^3/uL (140-450); White Blood Cell 5.2 10^3/uL (4.4-10.8)
[2017-04-14 06:24] LABS: INR 1.17 (0.9-1.15); Prothrombin Time 12.8 sec (9.37-12.3)
[2017-04-14 06:43] LABS: BUN/Creatinine Ratio 33.3; Bilirubin, Total 0.7 mg/dL (0.2-1.0); Calcium 7.5 mg/dL (8.5-10.1); Magnesium 1.8 mg/dL (1.6-2.6); Potassium 4.1 mmol/L (3.5-5.1); Total Protein 5.7 g/dL (6.4-8.2)
[2017-04-14] MEDS: PRO-STAT 64 30ML PO SCH ×2 (08:00→18:00)
[2017-04-14] MEDS: Boost Glucose Control 8 Ounces PO SCH ×3 (08:00→18:00)
[2017-04-14 09:13] VITALS: BP 77/50
[2017-04-14] MEDS: POTASSIUM CHL 10% (20 MEQ/15ML) 15ml ORAL SOLN PO SCH ×2 (10:00→22:09)
[2017-04-14] MEDS: AMIODARONE HCL 200 MG TAB PO SCH ×2 (10:00→22:08)
[2017-04-14] MEDS: CARVEDILOL 3.125 MG TAB PO SCH ×2 (10:00→22:09)
[2017-04-14] MEDS: LACTULOSE 20Gm/30ML SOLN PO SCH (10:00)
[2017-04-14] MEDS: LISINOPRIL 10 MG TAB PO SCH (10:00)
[2017-04-14] MEDS: ASPirin-EC 81 mg tab PO SCH (10:36)
[2017-04-14] MEDS: MULTIPLE VITAMIN TAB PO SCH (10:38)
[2017-04-14] MEDS: ASCORBIC ACID 500 MG TAB PO SCH ×2 (10:38→22:09)
[2017-04-14] MEDS: ENOXAPARIN SOD 40 MG/0.4 ML SYRINGE SC SCH (10:39)
[2017-04-14 11:57] VITALS: BP 56/67
[2017-04-14] MEDS: LEVOFLOXACIN 750MG 150 ML IV SCH (14:27)
[2017-04-14 17:30] VITALS: BP 82/46
[2017-04-14] MEDS: FUROSEMIDE 40 MG TAB PO SCH (17:55)
[2017-04-14 22:55] VITALS: BP 97/71
[2017-04-15 05:03] VITALS: BP 84/54
[2017-04-15] MEDS: FUROSEMIDE 40 MG TAB PO SCH ×2 (05:15→17:42)
[2017-04-15] MEDS: D5W 5% IV SCH ×3 (06:00→21:49)
[2017-04-15] MEDS: CEFOTAXIME SODIUM IV SCH ×3 (06:00→21:49)
[2017-04-15] MEDS: PRO-STAT 64 30ML PO SCH ×2 (08:00→18:00)
[2017-04-15] MEDS: Boost Glucose Control 8 Ounces PO SCH ×3 (08:00→18:00)
[2017-04-15 08:36] VITALS: BP 90/58
[2017-04-15] MEDS: LACTULOSE 20Gm/30ML SOLN PO SCH (10:00)
[2017-04-15] MEDS: SPIRONOLACTONE 25 MG TAB PO SCH ×2 (10:00→21:49)
[2017-04-15] MEDS: CARVEDILOL 3.125 MG TAB PO SCH ×2 (10:00→21:46)
[2017-04-15] MEDS: ASPirin-EC 81 mg tab PO SCH (10:00)
[2017-04-15] MEDS: ENOXAPARIN SOD 40 MG/0.4 ML SYRINGE SC SCH (10:00)
[2017-04-15] MEDS: POTASSIUM CHL 10% (20 MEQ/15ML) 15ml ORAL SOLN PO SCH ×2 (10:00→21:49)
[2017-04-15] MEDS: AMIODARONE HCL 200 MG TAB PO SCH ×2 (10:00→21:46)
[2017-04-15] MEDS: MULTIPLE VITAMIN TAB PO SCH (10:00)
[2017-04-15] MEDS: ASCORBIC ACID 500 MG TAB PO SCH ×2 (10:00→21:49)
[2017-04-15] MEDS: LISINOPRIL 10 MG TAB PO SCH (10:00)
[2017-04-15] MEDS: LEVOFLOXACIN 750MG 150 ML IV SCH (10:43)
[2017-04-15 12:30] VITALS: BP 86/59
[2017-04-15 17:11] VITALS: BP 89/59
[2017-04-15 22:00] VITALS: BP 83/54
[2017-04-16 05:00] VITALS: BP 88/54
[2017-04-16] MEDS: FUROSEMIDE 40 MG TAB PO SCH (06:00)
[2017-04-16] MEDS: CEFOTAXIME SODIUM IV SCH (06:08)
[2017-04-16] MEDS: D5W 5% IV SCH (06:08)
[2017-04-16 07:08] LABS: BUN/Creatinine Ratio 38.2; Potassium 4.7 mmol/L (3.5-5.1)
[2017-04-16] MEDS: Boost Glucose Control 8 Ounces PO SCH ×3 (07:49→18:07)
[2017-04-16] MEDS: PRO-STAT 64 30ML PO SCH ×2 (07:49→18:07)
[2017-04-16 09:00] VITALS: BP 94/57
[2017-04-16] MEDS: LACTULOSE 20Gm/30ML SOLN PO SCH (10:54)
[2017-04-16] MEDS: LEVOFLOXACIN 750MG 150 ML IV SCH (10:54)
[2017-04-16] MEDS: MULTIPLE VITAMIN TAB PO SCH (10:55)
[2017-04-16] MEDS: ENOXAPARIN SOD 40 MG/0.4 ML SYRINGE SC SCH (10:55)
[2017-04-16] MEDS: LISINOPRIL 10 MG TAB PO SCH (10:56)
[2017-04-16] MEDS: SPIRONOLACTONE 25 MG TAB PO SCH (10:56)
[2017-04-16] MEDS: CARVEDILOL 3.125 MG TAB PO SCH ×2 (10:57→21:11)
[2017-04-16] MEDS: ASCORBIC ACID 500 MG TAB PO SCH ×2 (10:57→21:15)
[2017-04-16] MEDS: AMIODARONE HCL 200 MG TAB PO SCH ×2 (10:58→21:15)
[2017-04-16] MEDS: ASPirin-EC 81 mg tab PO SCH (10:59)
[2017-04-16] MEDS: POTASSIUM CHL 10% (20 MEQ/15ML) 15ml ORAL SOLN PO SCH ×2 (10:59→21:15)
[2017-04-16 13:34] VITALS: BP 81/46
[2017-04-16 17:11] VITALS: BP 70/40
[2017-04-16] MEDS ORDERED: NITROGLYCERIN 0.4 MG SL TAB SL PRN ×2 (18:45)
[2017-04-16] MEDS ORDERED: MORPHINE SULF INJ 2 MG/ML SYRINGE 1ML IV PRN ×2 (18:45)
[2017-04-16] MEDS: SODIUM CHLOR 0.9% PF (SALINE LOCK) 10ML VIAL IV SCH (21:14)
[2017-04-16 21:59] VITALS: BP 70/41
[2017-04-17 04:39] VITALS: BP 74/48
[2017-04-17] MEDS: SODIUM CHLOR 0.9% PF (SALINE LOCK) 10ML VIAL IV SCH ×2 (06:28→17:03)
[2017-04-17 06:31] LABS: BUN/Creatinine Ratio 47.4; Calcium 7.8 mg/dL (8.5-10.1); Potassium 4.2 mmol/L (3.5-5.1)
[2017-04-17 08:00] VITALS: BP 98/57
[2017-04-17] MEDS: PRO-STAT 64 30ML PO SCH (08:00)
[2017-04-17] MEDS: Boost Glucose Control 8 Ounces PO SCH ×2 (08:00→12:00)
[2017-04-17 09:00] VITALS: BP 98/57
[2017-04-17] MEDS: ENOXAPARIN SOD 40 MG/0.4 ML SYRINGE SC SCH (09:27)
[2017-04-17] MEDS: MULTIPLE VITAMIN TAB PO SCH (09:29)
[2017-04-17] MEDS: CARVEDILOL 3.125 MG TAB PO SCH (09:29)
[2017-04-17] MEDS: ASCORBIC ACID 500 MG TAB PO SCH (09:30)
[2017-04-17] MEDS: AMIODARONE HCL 200 MG TAB PO SCH (09:30)
[2017-04-17] MEDS: LISINOPRIL 10 MG TAB PO SCH (09:30)
[2017-04-17] MEDS: ASPirin-EC 81 mg tab PO SCH (09:31)
[2017-04-17] MEDS: POTASSIUM CHL 10% (20 MEQ/15ML) 15ml ORAL SOLN PO SCH (09:31)
[2017-04-17] MEDS: LACTULOSE 20Gm/30ML SOLN PO SCH (09:36)
[2017-04-17] MEDS ORDERED: LEVOFLOXACIN 250 MG TAB PO SCH (10:00)
[2017-04-17] MEDS ORDERED: SPIRONOLACTONE 25 MG TAB PO SCH (10:00)
[2017-04-17] MEDS ORDERED: FUROSEMIDE 40 MG TAB PO SCH (10:00)
[2017-04-17 12:25] VITALS: BP 98/57
[2017-04-17 13:00] VITALS: BP 93/40
[2017-04-17 17:00] VITALS: BP 74/40
== END 2017-04-17 19:00 | DRG 720 ==
LOC: ER 15:23 → EDBD 15:23 → OVERFLOW 15:24 → TELE-EAST 23:37
PROVIDERS: ADMIT Nurse Practitioner Family; ATTEND Family Medicine
PROC: 0W9G3ZZ Drainage of Peritoneal Cavity, Percutaneous Approach (ICD-10-PCS; principal; 2017-04-08)
PROC: 0W9G3ZZ Drainage of Peritoneal Cavity, Percutaneous Approach (ICD-10-PCS; 2017-04-10)
PROC: 0W9G3ZZ Drainage of Peritoneal Cavity, Percutaneous Approach (ICD-10-PCS; 2017-04-15)
DX: A41.9 Sepsis, unspecified organism (principal); E43 Unspecified severe protein-calorie malnutrition; I50.43 Acute on chronic combined systolic (congestive) and diastolic (congestive) heart failure; G93.40 Encephalopathy, unspecified; I47.2 Ventricular tachycardia; K65.2 Spontaneous bacterial peritonitis; I11.0 Hypertensive heart disease with heart failure; K76.6 Portal hypertension; D68.59 Other primary thrombophilia; E66.01 Morbid (severe) obesity due to excess calories; K70.31 Alcoholic cirrhosis of liver with ascites; L03.116 Cellulitis of left lower limb; L03.115 Cellulitis of right lower limb; N39.0 Urinary tract infection, site not specified; E78.5 Hyperlipidemia, unspecified; E87.5 Hyperkalemia; E11.9 Type 2 diabetes mellitus without complications; E87.6 Hypokalemia; L97.919 Non-pressure chronic ulcer of unspecified part of right lower leg with unspecified severity; L97.929 Non-pressure chronic ulcer of unspecified part of left lower leg with unspecified severity; F10.10 Alcohol abuse, uncomplicated; F19.10 Other psychoactive substance abuse, uncomplicated; F20.0 Paranoid schizophrenia; I42.9 Cardiomyopathy, unspecified; B95.61 Methicillin susceptible Staphylococcus aureus infection as the cause of diseases classified elsewhere; I49.3 Ventricular premature depolarization; I87.2 Venous insufficiency (chronic) (peripheral); K21.9 Gastro-esophageal reflux disease without esophagitis; Z83.3 Family history of diabetes mellitus; Z91.19 Patient's noncompliance with other medical treatment and regimen; Z82.49 Family history of ischemic heart disease and other diseases of the circulatory system; Z68.31 Body mass index [BMI] 31.0-31.9, adult
CPT/HCPCS: 10030; 36415; 51702; 71010; 76700; 76942; 80048; 80053; 80061; 80076; 80202; 80307; 81001; 82140; 82607; 82746; 82962; 83036; 83605; 83735; 83880; 84100; 84443; 84484; 85007; 85025; 85027; 85610; 85730; 86592; 87040; 87077; 87186; 87205; 89051; 93005; 96365; 96367; 96372; 96375; 97163; J0696; J1956; J2001; J3430; J3490; J7060